=== PATIENT | male | born 1985 | race Caucasian/White ===

== ENCOUNTER 2020-09-21 05:26 | Inpatient (IN) | payer OTHER ==
[2020-09-21] MEDS ORDERED: NALOXONE 0.4 MG/ML 1 ML VIAL IVP STA (05:31)
[2020-09-21] MEDS ORDERED: ETOMIDATE 2 MG/ML 10 ML VIAL IVP STA (05:38)
[2020-09-21 05:43] LABS: Glucose,Whole Blood 147 mg/dL (75-99)
[2020-09-21] MEDS ORDERED: SODIUM CHLORIDE 0.9% 1,000 ML IV ONE ×3 (05:46→13:11)
[2020-09-21] MEDS ORDERED: SODIUM CHLORIDE 0.9% 1,000 ML IV STA ×4 (05:46→08:30)
[2020-09-21] MEDS ORDERED: LORazepam 2 MG/ML INJ IV STA ×2 (05:48→09:34)
[2020-09-21] MEDS ORDERED: MORPHINE SULFATE 4 MG/ML SYRINGE IV STA (05:48)
[2020-09-21] MEDS ORDERED: SUCCINYLCHOLINE CHLORIDE VIAL 200 MG/10 ML VIAL IV STA (06:01)
--- NOTE | 2020-09-21 06:13 | XR ---
EXAMINATION TYPE: XR chest 1V portable DATE OF EXAM: 09/21/2020 COMPARISON: NONE HISTORY: Unresponsive. Had to be intubated. TECHNIQUE: Single AP portable frontal supine view of the chest is obtained. FINDINGS: There is oral gastric tube passing below the diaphragm. There is endotracheal tube at leve l of aortic knob approximately 1 to 2 cm above cornelia, advise pulling back 2 to 3 cm to be in more id eal position. Low lung volumes with mild central vascular congestion and right basilar opacity. No pleural effusion or pneumothorax. Cardiac silhouette size within normal limits. Visualized osseous structures are int act. IMPRESSION: 1. Satisfactory positioning orogastric tube. Slightly low-lying endotracheal tube. 2. Low lung volumes with mild central vascular congestion and right basilar infiltrate and/or atelect asis.
--- NOTE | 2020-09-21 06:19 | ED ---
Altered Mental Status HPI - General Chief Complaint: Altered Mental Status Stated Complaint: Unresponsive Time Seen by Provider: 09/21/20 05:46 Source: EMS Mode of arrival: EMS Limitations: altered mental status - History of Present Illness Initial Comments: This patient was brought by EMS from a motel room where he was staying with his partner. They had reportedly been using a hot tub last night and the patient probably was using methamphetamine and possibly opioids. The partner had gone to sleep and woke to find the patient unresponsive in the hot tub. He had probably been in the tub for six hours. No other history available. MD Complaint: altered mental status, decreased responsiveness -: hour(s) Severity: severe Treatments Prior to Arrival: IV fluid, oxygen - Related Data Home Medications Medication Instructions Recorded Confirmed Buprenorphine HCl/Naloxone HCl 1 film SL BID 09/21/20 09/21/20 [Suboxone 8 mg-2 mg Sl Film] Kratom 1 cap PO DIRECTED 09/21/20 09/21/20 Allergies Allergy/AdvReac Type Severity Reaction Status Date / Time No Known Allergies Allergy Unverified 09/21/20 09:19 Review of Systems ROS Statement: Those systems with pertinent positive or pertinent negative responses have been documented in the HPI. ROS Other: All systems not noted in ROS Statement are negative. Limitations: ROS unobtainable due to patients medical condition Past Medical History Past Medical History: No Reported History History of Any Multi-Drug Resistant Organisms: None Reported Past Surgical History: No Surgical Hx Reported Smoking Status: Unknown if ever smoked Past Alcohol Use History: None Reported Past Drug Use History: None Reported - Past Family History Father Family Medical History: GERD/Reflux General Exam General appearance: obtunded Head exam: Present: atraumatic, normocephalic Eye exam: Present: scleral icterus. Absent: conjunctival injection, nystagmus Pupils: Present: mydriatic ENT exam: Present: mucous membranes dry Neck exam: Present: normal inspection. Absent: tenderness Respiratory exam: Present: respiratory distress (tachypnea, rate 36.), rhonchi. Absent: wheezes, rales, stridor Cardiovascular Exam: Present: normal rhythm, tachycardia, systolic murmur. Absent: diastolic murmur, rubs, gallop GI/Abdominal exam: Present: soft. Absent: distended, tenderness, guarding, r ebound, rigid, mass, pulsatile mass, hernia exam: Present: normal inspection Extremities exam: Present: normal inspection (There is present during of the fingers and). Absent: normal capillary refill, pedal edema, calf tenderness Back exam: Present: normal inspection, other (No evidence of trauma. No step- off or deformity). Absent: vertebral tenderness Neurological exam: Present: altered, CN II-XII intact, reflexes normal. Absent: motor sensory deficit Skin exam: Present: warm, dry, intact, erythema, other (Pruning of the digits consistent with immersion). Absent: rash Course Vital Signs 09/21/20 09/21/20 09/21/20 05:27 05:29 05:31 Temperature 98.5 F 105 F H Pulse Rate 163 H 178 H Respiratory 60 H 60 H 28 H Rate Blood Pressure 200/163 200/163 O2 Sat by Pulse 91 L 91 L Oximetry 09/21/20 09/21/20 09/21/20 05:40 06:00 06:10 Temperature Pulse Rate 162 H 165 H 168 H Respiratory 20 26 H 30 H Rate Blood Pressure 64/28 66/26 O2 Sat by Pulse 91 L 98 98 Oximetry 09/21/20 09/21/20 09/21/20 06:15 06:20 06:25 Temperature 105.6 F H 105.4 F H 103.1 F H Pulse Rate 165 H 165 H 168 H Respiratory 25 H 16 20 Rate Blood Pressure 55/27 98/33 93/21 O2 Sat by Pulse 100 100 100 Oximetry 09/21/20 09/21/20 09/21/20 06:30 06:45 07:06 Temperature 102.6 F H 104.2 F H 106.9 F H Pulse Rate 168 H 168 H 165 H Respiratory 28 H 16 18 Rate Blood Pressure 65/28 101/32 50/20 O2 Sat by Pulse 100 99 100 Oximetry 09/21/20 09/21/20 09/21/20 07:14 07:38 08:07 Temperature 106.9 F H 106.3 F H 106.2 F H Pulse Rate 149 H 151 H Respiratory 36 H 40 H Rate Blood Pressure 85/21 81/24 O2 Sat by Pulse 10 L Oximetry 09/21/20 09/21/20 09/21/20 08:33 09:02 09:30 Temperature 105.6 F H 104.7 F H 103.1 F H Pulse Rate 144 H 134 H 129 H Respiratory 38 H 35 H 45 H Rate Blood Pressure 74/33 68/34 104/34 O2 Sat by Pulse 99 100 99 Oximetry 09/21/20 09/21/20 10:01 10:06 Temperature 102.6 F H Pulse Rate 125 H Respiratory 45 H Rate Blood Pressure 78/26 71/24 O2 Sat by Pulse 99 Oximetry Procedures - Central Line Placement Right Femoral Consent Obtained: emergent situation Patient Placed on Monitor/Pulse Ox: Yes MD Prep: mask, gown, gloves Central Line Prep: Chlorhexidine scrub Local Anesthesia Used: Lidocaine 1% Central Line Lumen Inserted: triple Bloods Obtained for Lab: Yes Central Line Position: good blood return, all ports aspirated, flushed, capped, sutured in place with nylon Dressing Applied: Tegaderm Patient Tolerated Procedure: well Complications: none Medical Decision Making - Medical Decision Making Patient is 34-year-old man brought in unresponsive after being found in hot tub, unconscious, by his partner who was there. Patient is intubated for airway protection, but suspect aspiration at the scene. Active cooling is initiated. Patient received a dose of antibiotics in emergency department Central line placement for administration of multiple medications, including IV fluids, antibiotics, pressor agents. Patient be admitted to ICU and consultants are added. Patient's with minimal neurologic activity, mainly just breathing over the ve ntilator, prognosis extremely guarded. - Lab Data Result diagrams: 09/21/20 13:40 09/21/20 12:32 Lab Results 09/21/20 09/21/20 09/21/20 Range/Units 05:39 05:46 06:35 WBC 16.0 H (3.8-10.6) k/uL RBC 5.02 (4.30-5.90) m/uL Hgb 15.8 (13.0-17.5) gm/dL Hct 48.1 (39.0-53.0) % MCV 95.9 (80.0-100.0) fL MCH 31.6 (25.0-35.0) pg MCHC 32.9 (31.0-37.0) g/dL RDW 13.3 (11.5-15.5) % Plt Count 287 (150-450) k/uL MPV 7.2 Neutrophils % Not Reportable Neutrophils % (Manual) 72 % Band Neuts % (Manual) 4 % Lymphocytes % Not Reportable Lymphocytes % (Manual) 11 % Monocytes % Not Reportable Monocytes % (Manual) 12 % Eosinophils % Not Reportable Basophils % Not Reportable Myelocytes % 2 % Neutrophils # Not Reportable Neutrophils # (Manual) 12.10 H (1.3-7.7) k/uL Lymphocytes # Not Reportable Lymphocytes # (Manual) 1.76 (1.0-4.8) k/uL Monocytes # Not Reportable Monocytes # (Manual) 1.92 H (0-1.0) k/uL Eosinophils # Not Reportable Basophils # Not Reportable Myelocytes # (Manual) 0.32 H (0) k/uL Nucleated RBCs 2 H (0-0) /100 WBC Manual Slide Review Performed Hypersegmented Neuts Present PT (9.0-12.0) sec INR (<1.2) APTT (22.0-30.0) sec Sample Site ABG pH (7.35-7.45) ABG pCO2 (35-45) mmHg ABG pO2 (83-108) mmHg ABG HCO3 (21-25) mmol/L ABG Total CO2 (19-24) mmol/L ABG O2 Saturation (94-97) % ABG Base Excess mmol/L Nelson Test VBG pH (7.31-7.41) VBG pCO2 (37-51) mmHg VBG HCO3 (24-28) mmol/L FiO2 % Sodium 143 (137-145) mmol/L Potassium 5.3 H (3.5-5.1) mmol/L Chloride 108 H (98-107) mmol/L Carbon Dioxide 20 L (22-30) mmol/L Anion Gap 15 mmol/L BUN 28 H (9-20) mg/dL Creatinine 3.81 H (0.66-1.25) mg/dL Est GFR (CKD-EPI)AfAm 22 (>60 ml/min/1.73 sqM) Est GFR (CKD-EPI)NonAf 19 (>60 ml/min/1.73 sqM) Glucose 101 H (74-99) mg/dL POC Glucose (mg/dL) 147 H (75-99) mg/dL POC Glu Proof Tester ID Khushboo Mederos Plasma Lactic Acid Stewart (0.7-2.0) mmol/L Calcium 9.4 (8.4-10.2) mg/dL Magnesium (1.6-2.3) mg/dL Total Bilirubin 0.9 (0.2-1.3) mg/dL AST 218 H (17-59) U/L ALT 156 H (4-49) U/L Alkaline Phosphatase 87 (38-126) U/L Ammonia (<30) umol/L Troponin I (0.000-0.034) ng/mL Total Protein 7.2 (6.3-8.2) g/dL Albumin 4.1 (3.5-5.0) g/dL Urine Color Urine Appearance (Clear) Urine pH (5.0-8.0) Ur Specific Hammond (1.001-1.035) Urine Protein (Negative) Urine Glucose (UA) (Negative) Urine Ketones (Negative) Urine Blood (Negative) Urine Nitrite (Negative) Urine Bilirubin (Negative) Urine Urobilinogen (<2.0) mg/dL Ur Leukocyte Esterase (Negative) Urine WBC (0-5) /hpf Ur Squamous Epith Cells (0-4) /hpf Urine Mucus (None) /hpf Urine Opiates Screen (NotDetected) Ur Oxycodone Screen (NotDetected) Urine Methadone Screen (NotDetected) Ur Propoxyphene Screen (NotDetected) Ur Barbiturates Screen (NotDetected) U Tricyclic Antidepress (NotDetected) Ur Phencyclidine Scrn (NotDetected) Ur Amphetamines Screen (NotDetected) U Methamphetamines Scrn (NotDetected) U Benzodiazepines Scrn (NotDetected) Urine Cocaine Screen (NotDetected) U Marijuana (THC) Screen (NotDetected) Serum Alcohol mg/dL 09/21/20 09/21/20 09/21/20 Range/Units 06:35 06:35 06:40 WBC (3.8-10.6) k/uL RBC (4.30-5.90) m/uL Hgb (13.0-17.5) gm/dL Hct (39.0-53.0) % MCV (80.0-100.0) fL MCH (25.0-35.0) pg MCHC (31.0-37.0) g/dL RDW (11.5-15.5) % Plt Count (150-450) k/uL MPV Neutrophils % Neutrophils % (Manual) % Band Neuts % (Manual) % Lymphocytes % Lymphocytes % (Manual) % Monocytes % Monocytes % (Manual) % Eosinophils % Basophils % Myelocytes % % Neutrophils # Neutrophils # (Manual) (1.3-7.7) k/uL Lymphocytes # Lymphocytes # (Manual) (1.0-4.8) k/uL Monocytes # Monocytes # (Manual) (0-1.0) k/uL Eosinophils # Basophils # Myelocytes # (Manual) (0) k/uL Nucleated RBCs (0-0) /100 WBC Manual Slide Review Hypersegmented Neuts PT 12.1 H (9.0-12.0) sec INR 1.2 H (<1.2) APTT 19.7 L (22.0-30.0) sec Sample Site ABG pH (7.35-7.45) ABG pCO2 (35-45) mmHg ABG pO2 (83-108) mmHg ABG HCO3 (21-25) mmol/L ABG Total CO2 (19-24) mmol/L ABG O2 Saturation (94-97) % ABG Base Excess mmol/L Nelson Test VBG pH (7.31-7.41) VBG pCO2 (37-51) mmHg VBG HCO3 (24-28) mmol/L FiO2 % Sodium (137-145) mmol/L Potassium (3.5-5.1) mmol/L Chloride (98-107) mmol/L Carbon Dioxide (22-30) mmol/L Anion Gap mmol/L BUN (9-20) mg/dL Creatinine (0.66-1.25) mg/dL Est GFR (CKD-EPI)AfAm (>60 ml/min/1.73 sqM) Est GFR (CKD-EPI)NonAf (>60 ml/min/1.73 sqM) Glucose (74-99) mg/dL POC Glucose (mg/dL) (75-99) mg/dL POC Glu Proof Tester ID Plasma Lactic Acid Stewart (0.7-2.0) mmol/L Calcium (8.4-10.2) mg/dL Magnesium (1.6-2.3) mg/dL Total Bilirubin (0.2-1.3) mg/dL AST (17-59) U/L ALT (4-49) U/L Alkaline Phosphatase (38-126) U/L Ammonia (<30) umol/L Troponin I 1.460 H* (0.000-0.034) ng/mL Total Protein (6.3-8.2) g/dL Albumin (3.5-5.0) g/dL Urine Color Yellow Urine Appearance Cloudy (Clear) Urine pH 5.5 (5.0-8.0) Ur Specific Hammond 1.025 (1.001-1.035) Urine Protein 1+ H (Negative) Urine Glucose (UA) Negative (Negative) Urine Ketones Trace H (Negative) Urine Blood Negative (Negative) Urine Nitrite Negative (Negative) Urine Bilirubin Negative (Negative) Urine Urobilinogen <2.0 (<2.0) mg/dL Ur Leukocyte Esterase Negative (Negative) Urine WBC 3 (0-5) /hpf Ur Squamous Epith Cells <1 (0-4) /hpf Urine Mucus Many H (None) /hpf Urine Opiates Screen Detected H (NotDetected) Ur Oxycodone Screen Not Detected (NotDetected) Urine Methadone Screen Not Detected (NotDetected) Ur Propoxyphene Screen Not Detected (NotDetected) Ur Barbiturates Screen Not Detected (NotDetected) U Tricyclic Antidepress Not Detected (NotDetected) Ur Phencyclidine Scrn Not Detected (NotDetected) Ur Amphetamines Screen Not Detected (NotDetected) U Methamphetamines Scrn Not Detected (NotDetected) U Benzodiazepines Scrn Detected H (NotDetected) Urine Cocaine Screen Not Detected (NotDetected) U Marijuana (THC) Screen Detected H (NotDetected) Serum Alcohol mg/dL 09/21/20 09/21/20 09/21/20 Range/Units 06:56 06:56 07:07 WBC (3.8-10.6) k/uL RBC (4.30-5.90) m/uL Hgb (13.0-17.5) gm/dL Hct (39.0-53.0) % MCV (80.0-100.0) fL MCH (25.0-35.0) pg MCHC (31.0-37.0) g/dL RDW (11.5-15.5) % Plt Count (150-450) k/uL MPV Neutrophils % Neutrophils % (Manual) % Band Neuts % (Manual) % Lymphocytes % Lymphocytes % (Manual) % Monocytes % Monocytes % (Manual) % Eosinophils % Basophils % Myelocytes % % Neutrophils # Neutrophils # (Manual) (1.3-7.7) k/uL Lymphocytes # Lymphocytes # (Manual) (1.0-4.8) k/uL Monocytes # Monocytes # (Manual) (0-1.0) k/uL Eosinophils # Basophils # Myelocytes # (Manual) (0) k/uL Nucleated RBCs (0-0) /100 WBC Manual Slide Review Hypersegmented Neuts PT (9.0-12.0) sec INR (<1.2) APTT (22.0-30.0) sec Sample Site rfem ABG pH 7.32 L (7.35-7.45) ABG pCO2 35 (35-45) mmHg ABG pO2 235 H (83-108) mmHg ABG HCO3 18 L (21-25) mmol/L ABG Total CO2 19 (19-24) mmol/L ABG O2 Saturation 100.0 H (94-97) % ABG Base Excess -8.1 mmol/L Nelson Test no VBG pH 7.28 L (7.31-7.41) VBG pCO2 42 (37-51) mmHg VBG HCO3 19 L (24-28) mmol/L FiO2 100 % Sodium (137-145) mmol/L Potassium (3.5-5.1) mmol/L Chloride (98-107) mmol/L Carbon Dioxide (22-30) mmol/L Anion Gap mmol/L BUN (9-20) mg/dL Creatinine (0.66-1.25) mg/dL Est GFR (CKD-EPI)AfAm (>60 ml/min/1.73 sqM) Est GFR (CKD-EPI)NonAf (>60 ml/min/1.73 sqM) Glucose (74-99) mg/dL POC Glucose (mg/dL) (75-99) mg/dL POC Glu Proof Tester ID Plasma Lactic Acid Stewart (0.7-2.0) mmol/L Calcium (8.4-10.2) mg/dL Magnesium (1.6-2.3) mg/dL Total Bilirubin (0.2-1.3) mg/dL AST (17-59) U/L ALT (4-49) U/L Alkaline Phosphatase (38-126) U/L Ammonia 44 H (<30) umol/L Troponin I (0.000-0.034) ng/mL Total Protein (6.3-8.2) g/dL Albumin (3.5-5.0) g/dL Urine Color Urine Appearance (Clear) Urine pH (5.0-8.0) Ur Specific Hammond (1.001-1.035) Urine Protein (Negative) Urine Glucose (UA) (Negative) Urine Ketones (Negative) Urine Blood (Negative) Urine Nitrite (Negative) Urine Bilirubin (Negative) Urine Urobilinogen (<2.0) mg/dL Ur Leukocyte Esterase (Negative) Urine WBC (0-5) /hpf Ur Squamous Epith Cells (0-4) /hpf Urine Mucus (None) /hpf Urine Opiates Screen (NotDetected) Ur Oxycodone Screen (NotDetected) Urine Methadone Screen (NotDetected) Ur Propoxyphene Screen (NotDetected) Ur Barbiturates Screen (NotDetected) U Tricyclic Antidepress (NotDetected) Ur Phencyclidine Scrn (NotDetected) Ur Amphetamines Screen (NotDetected) U Methamphetamines Scrn (NotDetected) U Benzodiazepines Scrn (NotDetected) Urine Cocaine Screen (NotDetected) U Marijuana (THC) Screen (NotDetected) Serum Alcohol mg/dL 09/21/20 09/21/20 09/21/20 Range/Units 08:14 08:14 08:15 WBC (3.8-10.6) k/uL RBC (4.30-5.90) m/uL Hgb (13.0-17.5) gm/dL Hct (39.0-53.0) % MCV (80.0-100.0) fL MCH (25.0-35.0) pg MCHC (31.0-37.0) g/dL RDW (11.5-15.5) % Plt Count (150-450) k/uL MPV Neutrophils % Neutrophils % (Manual) % Band Neuts % (Manual) % Lymphocytes % Lymphocytes % (Manual) % Monocytes % Monocytes % (Manual) % Eosinophils % Basophils % Myelocytes % % Neutrophils # Neutrophils # (Manual) (1.3-7.7) k/uL Lymphocytes # Lymphocytes # (Manual) (1.0-4.8) k/uL Monocytes # Monocytes # (Manual) (0-1.0) k/uL Eosinophils # Basophils # Myelocytes # (Manual) (0) k/uL Nucleated RBCs (0-0) /100 WBC Manual Slide Review Hypersegmented Neuts PT (9.0-12.0) sec INR (<1.2) APTT (22.0-30.0) sec Sample Site ABG pH (7.35-7.45) ABG pCO2 (35-45) mmHg ABG pO2 (83-108) mmHg ABG HCO3 (21-25) mmol/L ABG Total CO2 (19-24) mmol/L ABG O2 Saturation (94-97) % ABG Base Excess mmol/L Nelson Test VBG pH (7.31-7.41) VBG pCO2 (37-51) mmHg VBG HCO3 (24-28) mmol/L FiO2 % Sodium 146 H (137-145) mmol/L Potassium 4.5 (3.5-5.1) mmol/L Chloride 115 H (98-107) mmol/L Carbon Dioxide 17 L (22-30) mmol/L Anion Gap 14 mmol/L BUN 32 H (9-20) mg/dL Creatinine 4.51 H (0.66-1.25) mg/dL Est GFR (CKD-EPI)AfAm 18 (>60 ml/min/1.73 sqM) Est GFR (CKD-EPI)NonAf 16 (>60 ml/min/1.73 sqM) Glucose 53 L (74-99) mg/dL POC Glucose (mg/dL) (75-99) mg/dL POC Glu Proof Tester ID Plasma Lactic Acid Stewart 3.0 H* (0.7-2.0) mmol/L Calcium 8.8 (8.4-10.2) mg/dL Magnesium 1.4 L (1.6-2.3) mg/dL Total Bilirubin (0.2-1.3) mg/dL AST (17-59) U/L ALT (4-49) U/L Alkaline Phosphatase (38-126) U/L Ammonia (<30) umol/L Troponin I (0.000-0.034) ng/mL Total Protein (6.3-8.2) g/dL Albumin (3.5-5.0) g/dL Urine Color Urine Appearance (Clear) Urine pH (5.0-8.0) Ur Specific Hammond (1.001-1.035) Urine Protein (Negative) Urine Glucose (UA) (Negative) Urine Ketones (Negative) Urine Blood (Negative) Urine Nitrite (Negative) Urine Bilirubin (Negative) Urine Urobilinogen (<2.0) mg/dL Ur Leukocyte Esterase (Negative) Urine WBC (0-5) /hpf Ur Squamous Epith Cells (0-4) /hpf Urine Mucus (None) /hpf Urine Opiates Screen (NotDetected) Ur Oxycodone Screen (NotDetected) Urine Methadone Screen (NotDetected) Ur Propoxyphene Screen (NotDetected) Ur Barbiturates Screen (NotDetected) U Tricyclic Antidepress (NotDetected) Ur Phencyclidine Scrn (NotDetected) Ur Amphetamines Screen (NotDetected) U Methamphetamines Scrn (NotDetected) U Benzodiazepines Scrn (NotDetected) Urine Cocaine Screen (NotDetected) U Marijuana (THC) Screen (NotDetected) Serum Alcohol <10 mg/dL - EKG Data -: EKG Interpreted by Me EKG shows normal: sinus rhythm, axis (right axis deviation), intervals (Normal) Rate: tachycardia (rate 165) Interpretation: nonspecific ST-T wave changes, other (Possible RVH) Critical Care Time Critical Care Time: Yes (60 minutes) Disposition Clinical Impression: Drug overdose, Altered mental status, Hyperthermia associated with heat Disposition: ADMITTED IP TO THIS HOSP Condition: Critical
[2020-09-21 06:46] LABS: HCT 48.1 % (39.0-53.0); HGB 15.8 gm/dL (13.0-17.5); MCH 31.6 pg (25.0-35.0); MCHC 32.9 g/dL (31.0-37.0); MCV 95.9 fL (80.0-100.0); Mean Platelet Volume 7.2; Platelet Count 287 k/uL (150-450); RBC 5.02 m/uL (4.30-5.90); RDW 13.3 % (11.5-15.5)
[2020-09-21 06:58] LABS: Appearance,Urine Cloudy (Clear); Bilirubin,Urine Negative (Negative); Blood,Urine Negative (Negative); Color,Urine Yellow; Glucose,Urine (UA) Negative (Negative); Ketones,Urine Trace (Negative); Leukocyte Esterase,Urine Negative (Negative); Mucus,Urine Many /hpf; Nitrite,Urine Negative (Negative); PH, Urine 5.5 (5.0-8.0); Protein,Urine 1+ (Negative); Specific Gravity,Urine 1.025 (1.001-1.035); Squamous Epithelial Cell,Urine <1 /hpf (0-4); Urobilinogen,Urine <2.0 mg/dL (<2.0); WBC,Urine 3 /hpf (0-5)
[2020-09-21 07:05] LABS: INR 1.2 (<1.2); Prothrombin Time 12.1 sec (9.0-12.0)
[2020-09-21 07:07] LABS: Partial Thromboplastin Time 19.7 sec (22.0-30.0)
[2020-09-21 07:10] LABS: ABG Base Excess -8.1 mmol/L; ABG HCO3 18 mmol/L (21-25); ABG PCO2 35 mmHg (35-45); ABG PH 7.32 (7.35-7.45); ABG PO2 235 mmHg (83-108); ABG TCO2 19 mmol/L (19-24)
[2020-09-21 07:11] LABS: Band Neutrophils % 4 %; Myelocytes % 2 %; Neutrophils % (M) 72 %; Nucleated Red Blood Cells 2 /100 WBC (0-0); Total Cells Counted 200
[2020-09-21 07:11] LABS: VBG PH 7.28 (7.31-7.41)
[2020-09-21 07:12] LABS: Lymphocytes # (M) 1.76 k/uL (1.0-4.8); Monocytes # (M) 1.92 k/uL (0-1.0); Myelocytes # (M) 0.32 k/uL (0)
[2020-09-21 07:14] LABS: Hypersegmented Neutrophils Present
[2020-09-21 07:14] LABS: Allen Test Performed? no
[2020-09-21 07:16] LABS: Cocaine Screen,Urine Not Detected (NotDetected); Phencyclidine Screen,Urine Not Detected (NotDetected); Urn Cannabinoid Scrn Detected (NotDetected)
[2020-09-21 07:17] LABS: Amphetamine Screen,Urine Not Detected (NotDetected); Barbiturate Screen,Urine Not Detected (NotDetected); Benzodiazepines Screen,Urine Detected (NotDetected); Methadone Screen, Urine Not Detected (NotDetected); Opiate Screen,Urine Detected (NotDetected); Oxycodone Screen, Urine Not Detected (NotDetected); Tricyclic Antidepressant,Urine Not Detected (NotDetected)
[2020-09-21 07:20] LABS: Albumin 4.1 g/dL (3.5-5.0); Calcium 9.4 mg/dL (8.4-10.2); Potassium 5.3 mmol/L (3.5-5.1); Total Bilirubin 0.9 mg/dL (0.2-1.3); Total Protein 7.2 g/dL (6.3-8.2)
--- NOTE | 2020-09-21 07:46 | CT ---
EXAMINATION TYPE: CT brain wo con DATE OF EXAM: 09/21/2020 COMPARISON: None. HISTORY: Altered mental status CT DLP: 1202.4 mGycm. Automated Exposure Control for Dose Reduction was Utilized. TECHNIQUE: CT scan of the head is performed without contrast. FINDINGS: Some artifact distortion noted. There is no acute intracranial hemorrhage, mass effect, or midline shift identified. The ventricles and sulci are within normal limits in size. Bolivar-white ma tter junction is maintained. The calvarium is intact. Fluid fills the nasopharyngeal airway. Air-flui d level right maxillary sinus and and bilateral sphenoid sinuses. Patchy fluid bilateral ethmoid air cells. Globes are intact bilaterally. IMPRESSION: No acute intracranial hemorrhage or midline shift is seen. Paranasal sinus disease may b e product of intubation.
[2020-09-21] MEDS ORDERED: ACETAMINOPHEN TAB 325 MG TAB PO PRN (08:51)
[2020-09-21] MEDS ORDERED: ARTIFICIAL TEARS OINTMENT 3.5 GM TUBE BOTH EYES PRN (08:51)
[2020-09-21] MEDS ORDERED: NALOXONE 0.4 MG/ML 1 ML VIAL IV PRN (08:51)
[2020-09-21] MEDS ORDERED: NOREPINEPHRINE 4 MG in SODIUM CHLORIDE 0.9% 250 ML IV ONE (09:00)
[2020-09-21] MEDS ORDERED: FAMOTIDINE 20 MG/2 ML VIAL IV SCH (09:00)
[2020-09-21] MEDS ORDERED: PANTOPRAZOLE 40 MG/10 ML VIAL IVP SCH (09:15)
[2020-09-21] MEDS: PIPERACILLIN-TAZOBACTAM 3.375 GM in SODIUM CHLORIDE 0.9% 100 ML IVPB SCH ×2 (09:19→16:20)
[2020-09-21] MEDS ORDERED: ACETAMINOPHEN SUPPOSITORY 650 MG SUPP RECTAL PRN (09:22)
--- NOTE | 2020-09-21 09:26 | P.HPIM ---
History of Present Illness H&P Date: 09/21/20 Chief Complaint: Unresponsive This is a 34-year-old male with past medical history significant for polysubstance abuse who was brought into the emergency room after he was found by his girlfriend unresponsive in a bathtub at the hotel room. Patient was seen and evaluated by me in the emergency room. He is currently intubated. History obtained by nursing staff and chart review. Apparently, patient was doing drugs last night with his girlfriend sitting in the bathtub at the hotel room and subsequently his girlfriend went to sleep and woke up this morning to find him still in the bathtub ''and making weird noises''. Patient was brought to the emergency room by EMS. He was found to have persistent high-grade fever of 106. He was also hypotensive and completely unresponsive. He was intubated. He was given 1 dose of succinylcholine and Narcan. He is currently on not on any sedation. He received aggressive IV fluid resuscitation and currently on his fifth liter of normal saline. He has a cooling blanket. Chest x-ray showed no acute findings. Review of Systems Unable to review other systems secondary to current mental status Past Medical History Past Medical History: No Reported History History of Any Multi-Drug Resistant Organisms: None Reported Past Surgical History: No Surgical Hx Reported Smoking Status: Unknown if ever smoked Past Alcohol Use History: None Reported Past Drug Use History: None Reported Medications and Allergies Home Medications Medication Instructions Recorded Confirmed Type Buprenorphine HCl/Naloxone HCl 1 film SL BID 09/21/20 09/21/20 History [Suboxone 8 mg-2 mg Sl Film] Kratom 1 cap PO DIRECTED 09/21/20 09/21/20 History Allergies Allergy/AdvReac Type Severity Reaction Status Date / Time No Known Allergies Allergy Unverified 09/21/20 09:19 Physical Exam Vitals: Vital Signs Temp Pulse Resp BP Pulse Ox 09/21/20 09:02 104.7 F H 134 H 35 H 68/34 100 09/21/20 08:33 105.6 F H 144 H 38 H 74/33 99 09/21/20 08:07 106.2 F H 151 H 40 H 81/24 09/21/20 07:38 106.3 F H 149 H 36 H 85/21 10 L 09/21/20 07:14 106.9 F H 09/21/20 07:06 106.9 F H 165 H 18 50/20 100 09/21/20 06:45 104.2 F H 168 H 16 101/32 99 09/21/20 06:30 102.6 F H 168 H 28 H 65/28 100 09/21/20 06:25 103.1 F H 168 H 20 93/21 100 09/21/20 06:20 105.4 F H 165 H 16 98/33 100 09/21/20 06:15 105.6 F H 165 H 25 H 55/27 100 09/21/20 06:10 168 H 30 H 66/26 98 09/21/20 06:00 165 H 26 H 64/28 98 09/21/20 05:40 162 H 20 91 L 09/21/20 05:31 28 H 09/21/20 05:29 105 F H 178 H 60 H 200/163 91 L 09/21/20 05:27 98.5 F 163 H 60 H 200/163 91 L Intake and Output 09/20/20 09/21/20 09/21/20 22:59 06:59 14:59 Other: Weight 95.254 kg General: The patient is obtunded, intubated and not responsive to painful stimuli Eye: there is normal conjunctiva bilaterally. Neck: The neck is supple, there is no JVD. Cardiovascular: Normal S1-S2, no S3-S4, no murmurs. Respiratory: Lungs with mechanical ventilator sounds Gastrointestinal: Abdomen is soft, nondistended Musculoskeletal: There is no pedal edema. Skin: Skin is warm and dry Results CBC & Chem 7: 09/21/20 06:35 09/21/20 05:46 Labs: Abnormal Lab Results - Last 24 Hours (Table) 09/21/20 09/21/20 09/21/20 Range/Units 05:39 05:46 06:35 WBC 16.0 H (3.8-10.6) k/uL Neutrophils # (Manual) 12.10 H (1.3-7.7) k/uL Monocytes # (Manual) 1.92 H (0-1.0) k/uL Myelocytes # (Manual) 0.32 H (0) k/uL Nucleated RBCs 2 H (0-0) /100 WBC PT (9.0-12.0) sec INR (<1.2) APTT (22.0-30.0) sec ABG pH (7.35-7.45) ABG pO2 (83-108) mmHg ABG HCO3 (21-25) mmol/L ABG O2 Saturation (94-97) % VBG pH (7.31-7.41) VBG HCO3 (24-28) mmol/L Potassium 5.3 H (3.5-5.1) mmol/L Chloride 108 H (98-107) mmol/L Carbon Dioxide 20 L (22-30) mmol/L BUN 28 H (9-20) mg/dL Creatinine 3.81 H (0.66-1.25) mg/dL Glucose 101 H (74-99) mg/dL POC Glucose (mg/dL) 147 H (75-99) mg/dL Plasma Lactic Acid Stewart (0.7-2.0) mmol/L AST 218 H (17-59) U/L ALT 156 H (4-49) U/L Ammonia (<30) umol/L Troponin I (0.000-0.034) ng/mL Urine Protein (Negative) Urine Ketones (Negative) Urine Mucus (None) /hpf Urine Opiates Screen (NotDetected) U Benzodiazepines Scrn (NotDetected) U Marijuana (THC) Screen (NotDetected) 09/21/20 09/21/20 09/21/20 Range/Units 06:35 06:35 06:40 WBC (3.8-10.6) k/uL Neutrophils # (Manual) (1.3-7.7) k/uL Monocytes # (Manual) (0-1.0) k/uL Myelocytes # (Manual) (0) k/uL Nucleated RBCs (0-0) /100 WBC PT 12.1 H (9.0-12.0) sec INR 1.2 H (<1.2) APTT 19.7 L (22.0-30.0) sec ABG pH (7.35-7.45) ABG pO2 (83-108) mmHg ABG HCO3 (21-25) mmol/L ABG O2 Saturation (94-97) % VBG pH (7.31-7.41) VBG HCO3 (24-28) mmol/L Potassium (3.5-5.1) mmol/L Chloride (98-107) mmol/L Carbon Dioxide (22-30) mmol/L BUN (9-20) mg/dL Creatinine (0.66-1.25) mg/dL Glucose (74-99) mg/dL POC Glucose (mg/dL) (75-99) mg/dL Plasma Lactic Acid Stewart (0.7-2.0) mmol/L AST (17-59) U/L ALT (4-49) U/L Ammonia (<30) umol/L Troponin I 1.460 H* (0.000-0.034) ng/mL Urine Protein 1+ H (Negative) Urine Ketones Trace H (Negative) Urine Mucus Many H (None) /hpf Urine Opiates Screen Detected H (NotDetected) U Benzodiazepines Scrn Detected H (NotDetected) U Marijuana (THC) Screen Detected H (NotDetected) 09/21/20 09/21/20 09/21/20 Range/Units 06:56 06:56 07:07 WBC (3.8-10.6) k/uL Neutrophils # (Manual) (1.3-7.7) k/uL Monocytes # (Manual) (0-1.0) k/uL Myelocytes # (Manual) (0) k/uL Nucleated RBCs (0-0) /100 WBC PT (9.0-12.0) sec INR (<1.2) APTT (22.0-30.0) sec ABG pH 7.32 L (7.35-7.45) ABG pO2 235 H (83-108) mmHg ABG HCO3 18 L (21-25) mmol/L ABG O2 Saturation 100.0 H (94-97) % VBG pH 7.28 L (7.31-7.41) VBG HCO3 19 L (24-28) mmol/L Potassium (3.5-5.1) mmol/L Chloride (98-107) mmol/L Carbon Dioxide (22-30) mmol/L BUN (9-20) mg/dL Creatinine (0.66-1.25) mg/dL Glucose (74-99) mg/dL POC Glucose (mg/dL) (75-99) mg/dL Plasma Lactic Acid Stewart (0.7-2.0) mmol/L AST (17-59) U/L ALT (4-49) U/L Ammonia 44 H (<30) umol/L Troponin I (0.000-0.034) ng/mL Urine Protein (Negative) Urine Ketones (Negative) Urine Mucus (None) /hpf Urine Opiates Screen (NotDetected) U Benzodiazepines Scrn (NotDetected) U Marijuana (THC) Screen (NotDetected) 09/21/20 Range/Units 08:15 WBC (3.8-10.6) k/uL Neutrophils # (Manual) (1.3-7.7) k/uL Monocytes # (Manual) (0-1.0) k/uL Myelocytes # (Manual) (0) k/uL Nucleated RBCs (0-0) /100 WBC PT (9.0-12.0) sec INR (<1.2) APTT (22.0-30.0) sec ABG pH (7.35-7.45) ABG pO2 (83-108) mmHg ABG HCO3 (21-25) mmol/L ABG O2 Saturation (94-97) % VBG pH (7.31-7.41) VBG HCO3 (24-28) mmol/L Potassium (3.5-5.1) mmol/L Chloride (98-107) mmol/L Carbon Dioxide (22-30) mmol/L BUN (9-20) mg/dL Creatinine (0.66-1.25) mg/dL Glucose (74-99) mg/dL POC Glucose (mg/dL) (75-99) mg/dL Plasma Lactic Acid Stewart 3.0 H* (0.7-2.0) mmol/L AST (17-59) U/L ALT (4-49) U/L Ammonia (<30) umol/L Troponin I (0.000-0.034) ng/mL Urine Protein (Negative) Urine Ketones (Negative) Urine Mucus (None) /hpf Urine Opiates Screen (NotDetected) U Benzodiazepines Scrn (NotDetected) U Marijuana (THC) Screen (NotDetected) Assessment and Plan Assessment: This is a 34-year-old male who was brought into the emergency room after his girlfriend found him unresponsive in a bathtub in a hotel. Apparently patient was last seen normal 6-8 hours prior to his presentation. He will be admitted to the intensive care unit for further management of his medical problems noted below. 1. Opiate and benzodiazepine overdose 2. Acute hypoxic respiratory failure requiring mechanical intubation. Ventilated to be managed by pharmacy resource tech 3. Acute toxic metabolic encephalopathy 4. Suspected anoxic brain injury: I consulted to neurology for further evaluation 5. Severe sepsis with septic shock: Continue aggressive IV fluid hydration and antibiotic. Blood culture sent and pending. Cooling blanket in place. Rectal Tylenol as needed for high-grade fever. 6. Suspected aspiration pneumonia: Started on IV Zosyn. 7. Acute kidney failure, oliguric: Continue aggressive IV fluid hydration. Repeat lab work 8. Troponin elevation: Most likely non-thrombotic troponin leak secondary to severe sepsis and hypotension. I would obtain echocardiogram to assess cardiac function. Consult cardiology for further evaluation. 9. GI and DVT prophylaxis with IV Protonix and subcu heparin Today, I reviewed his medication list and lab work results. Patient will be admitted to the intensive care unit. Repeat BMP magnesium and lactic acid. I w ill attempt to contact his family later on today.
[2020-09-21] MEDS: SODIUM CHLORIDE 0.9% 1,000 ML IV SCH ×3 (09:39→18:10)
[2020-09-21] MEDS ORDERED: CISATRACURIUM 2 MG/ML 5 ML VIAL IV ONE (09:41)
[2020-09-21] MEDS ORDERED: CISATRACURIUM 200 MG in SODIUM CHLORIDE 0.9% 180 ML IV SCH (09:45)
[2020-09-21] MEDS ORDERED: propofoL 50 ML IV ONE (09:49)
[2020-09-21 10:34] LABS: Glucose,Whole Blood 52 mg/dL (75-99)
[2020-09-21] MEDS ORDERED: DEXTROSE 50% SYRINGE 50 ML IVP ONE (10:34)
[2020-09-21 10:35] LABS: Glucose,Whole Blood 61 mg/dL (75-99)
[2020-09-21 10:52] LABS: Glucose,Whole Blood 138 mg/dL (75-99)
[2020-09-21] MEDS ORDERED: IPRATROPIUM-ALBUTEROL 3 ML NEB INHALATION PRN (11:09)
--- NOTE | 2020-09-21 11:13 | P.CNPUL ---
History of Present Illness Consult date: 09/21/20 Requesting physician: Mark Castro Reason for consult: other Chief complaint: Acute hypoxic respiratory failure, altered mental status, overdose History of present illness: This is a 34-year-old white male patient was brought into the emergency department on 09/21/2020 per EMS from a motel room where he was staying with his partner. Apparently was using methamphetamine and possibly opioids and was in the hot tub and had gone to sleep. His partner found him unresponsive in the hot tub this morning, and it was estimated that he had been in the hot tub for 6 hours. Patient history is significant for polysubstance abuse. In the emergency department patient was found to have high-grade fever of 106, hypotension and unresponsiveness. Patient was intubated in the emergency department. He was given a dose of Narcan. Patient has received a total of 5- 1/2 L and IV fluid boluses, placed on a cooling blanket, cultures have been sent, patient was started on Zosyn for antibiotic coverage. Brain CT showed no acute intracranial hemorrhage. Chest x-ray showed low lung volumes with mild central vascular congestion and right basilar infiltrate and/or atelectasis. Patient in sinus mechanism tachycardic with a rate of 130 to 160 BPM. Admission labs showed leukocytosis with white blood cell count 16, hemoglobin of 15.8, INR is 1.2, sodium is 143, potassium is 5.3, chloride is 108, CO2 is 20, BUN of 28, creatinine is 3.8, plasma lactic acid was 3.0, troponins were 1.46 and subseque ntly increased to 28.4. We saw the patient in the emergency department, still quite tachycardic, tachypneic, his unresponsive, breathing over the ventilator, is currently not on any sedation, did receive a dose of Ativan. Vent settings are assist-control mode with a rate of 16, tidal lines 500, FiO2 is 50% and PEEP of 5. His blood gases showed pO2 of 235, pCO2 is 35, and pH of 7.32 this was done on FiO2 of 100% and FiO2 had since been dropped down to 50%. Patient is currently on Levophed at 0.05 mics per kilo per minute, and 0.9 is infusing and oriented to 50 ML per hour. Patient is quite asynchronous with the ventilator, he will need to be started on the sedative infusion possibly to prevent, and given paralytics Review of Systems ROS unobtainable: due to endotracheal tube, due to mental status All systems: negative Constitutional: Denies chills, Denies fever Eyes: denies blurred vision, denies pain Ears, nose, mouth and throat: Denies headache, Denies sore throat Cardiovascular: Denies chest pain, Denies shortness of breath Respiratory: Denies cough Gastrointestinal: Denies abdominal pain, Denies diarrhea, Denies nausea, Denies vomiting Musculoskeletal: Denies myalgias Integumentary: Denies pruritus, Denies rash Neurological: Denies numbness, Denies weakness Psychiatric: Denies anxiety, Denies depression Endocrine: Denies fatigue, Denies weight change Past Medical History Past Medical History: No Reported History History of Any Multi-Drug Resistant Organisms: None Reported Past Surgical History: No Surgical Hx Reported Smoking Status: Unknown if ever smoked Past Alcohol Use History: None Reported Past Drug Use History: None Reported Medications and Allergies Home Medications Medication Instructions Recorded Confirmed Type Buprenorphine HCl/Naloxone HCl 1 film SL BID 09/21/20 09/21/20 History [Suboxone 8 mg-2 mg Sl Film] Kratom 1 cap PO DIRECTED 09/21/20 09/21/20 History Allergies Allergy/AdvReac Type Severity Reaction Status Date / Time No Known Allergies Allergy Unverified 09/21/20 09:19 Physical Exam Vitals: Vital Signs Temp Pulse Resp BP Pulse Ox 09/21/20 10:06 71/24 09/21/20 10:01 102.6 F H 125 H 45 H 78/26 99 09/21/20 09:30 103.1 F H 129 H 45 H 104/34 99 09/21/20 09:02 104.7 F H 134 H 35 H 68/34 100 09/21/20 08:33 105.6 F H 144 H 38 H 74/33 99 09/21/20 08:07 106.2 F H 151 H 40 H 81/24 09/21/20 07:38 106.3 F H 149 H 36 H 85/21 10 L 09/21/20 07:14 106.9 F H 09/21/20 07:06 106.9 F H 165 H 18 50/20 100 09/21/20 06:45 104.2 F H 168 H 16 101/32 99 09/21/20 06:30 102.6 F H 168 H 28 H 65/28 100 09/21/20 06:25 103.1 F H 168 H 20 93/21 100 09/21/20 06:20 105.4 F H 165 H 16 98/33 100 09/21/20 06:15 105.6 F H 165 H 25 H 55/27 100 09/21/20 06:10 168 H 30 H 66/ 98 09/21/20 06:00 165 H 26 H 6428 98 09/21/20 05:40 162 H 20 91 L 09/21/20 05:31 28 H 09/21/20 05:29 105 F H 178 H 60 H 200/163 91 L 09/21/20 05:27 98.5 F 163 H 60 H 200/163 91 L Intake and Output 09/20/20 09/21/20 09/21/20 22:59 06:59 14:59 Intake Total 18.025 Balance 18.025 Intake: Intake, IV Titration 18.025 Amount Norepinephrine 4 mg In 18.025 Sodium Chloride 0.9% 250 ml @ 0.05 MCG/KG/MIN 18. 146 mls/hr IV .Q14H ONE Rx#:[id number] Other: Weight 95.254 kg GENERAL EXAM: Unresponsive, 34-year-old white male, intubated, on assist- control mode of ventilation with FiO2 of 50% and PEEP of 5, breathing over the ventilator, quite asynchronous with the vent, with coughing spells, but not purposeful and not following any command. Febrile and tachycardic, in sinus mechanism seen in the emergency preparation department supervisor: Normocephalic/atraumatic. EYES: Normal reaction of pupils, equal size. Conjunctiva pink, sclera white. NOSE: Clear with pink turbinates. THROAT: No erythema or exudates. NECK: No masses, no JVD, no thyroid enlargement, no adenopathy. CHEST: No chest wall deformity. Symmetrical expansion. LUNGS: Equal air entry with no crackles, wheeze, rhonchi or dullness. CVS: Regular rate and rhythm, normal S1 and S2, no gallops, no murmurs, no rubs ABDOMEN: Soft, nontender. No hepatosplenomegaly, normal bowel sounds, no guarding or rigidity. EXTREMITIES: No clubbing, no edema, no cyanosis, 2+ pulses and upper and lower extremities. MUSCULOSKELETAL: Muscle strength and tone normal. Patient has a tether on his right ankle SPINE: No scoliosis or deformity SKIN: No rashes CENTRAL NERVOUS SYSTEM: Sedated, intubated No focal deficits, tone is normal in all 4 extremities. Results - Laboratory Findings CBC and BMP: 09/21/20 06:35 09/21/20 05:46 ABG ABG pH 7.32 (7.35-7.45) L 09/21/20 07:07 ABG pCO2 35 mmHg (35-45) 09/21/20 07:07 ABG pO2 235 mmHg (83-108) H 09/21/20 07:07 ABG O2 Saturation 100.0 % (94-97) H 09/21/20 07:07 PT/INR, D-dimer PT 12.1 sec (9.0-12.0) H 09/21/20 06:35 INR 1.2 (<1.2) H 09/21/20 06:35 Abnormal lab findings: Abnormal Labs 09/21/20 09/21/20 09/21/20 05:39 05:46 06:35 WBC 16.0 H Neutrophils # (Manual) 12.10 H Monocytes # (Manual) 1.92 H Myelocytes # (Manual) 0.32 H Nucleated RBCs 2 H PT INR APTT ABG pH ABG pO2 ABG HCO3 ABG O2 Saturation VBG pH VBG HCO3 Potassium 5.3 H Chloride 108 H Carbon Dioxide 20 L BUN 28 H Creatinine 3.81 H Glucose 101 H POC Glucose (mg/dL) 147 H Plasma Lactic Acid Stewart AST 218 H ALT 156 H Ammonia Troponin I Urine Protein Urine Ketones Urine Mucus Urine Opiates Screen U Benzodiazepines Scrn U Marijuana (THC) Screen 09/21/20 09/21/20 09/21/20 06:35 06:35 06:40 WBC Neutrophils # (Manual) Monocytes # (Manual) Myelocytes # (Manual) Nucleated RBCs PT 12.1 H INR 1.2 H APTT 19.7 L ABG pH ABG pO2 ABG HCO3 ABG O2 Saturation VBG pH VBG HCO3 Potassium Chloride Carbon Dioxide BUN Creatinine Glucose POC Glucose (mg/dL) Plasma Lactic Acid Stewart AST ALT Ammonia Troponin I 1.460 H* Urine Protein 1+ H Urine Ketones Trace H Urine Mucus Many H Urine Opiates Screen Detected H U Benzodiazepines Scrn Detected H U Marijuana (THC) Screen Detected H 09/21/20 09/21/20 09/21/20 06:56 06:56 07:07 WBC Neutrophils # (Manual) Monocytes # (Manual) Myelocytes # (Manual) Nucleated RBCs PT INR APTT ABG pH 7.32 L ABG pO2 235 H ABG HCO3 18 L ABG O2 Saturation 100.0 H VBG pH 7.28 L VBG HCO3 19 L Potassium Chloride Carbon Dioxide BUN Creatinine Glucose POC Glucose (mg/dL) Plasma Lactic Acid Stewart AST ALT Ammonia 44 H Troponin I Urine Protein Urine Ketones Urine Mucus Urine Opiates Screen U Benzodiazepines Scrn U Marijuana (THC) Screen 09/21/20 09/21/20 09/21/20 08:15 10:32 10:34 WBC Neutrophils # (Manual) Monocytes # (Manual) Myelocytes # (Manual) Nucleated RBCs PT INR APTT ABG pH ABG pO2 ABG HCO3 ABG O2 Saturation VBG pH VBG HCO3 Potassium Chloride Carbon Dioxide BUN Creatinine Glucose POC Glucose (mg/dL) 52 L 61 L Plasma Lactic Acid Stewart 3.0 H* AST ALT Ammonia Troponin I Urine Protein Urine Ketones Urine Mucus Urine Opiates Screen U Benzodiazepines Scrn U Marijuana (THC) Screen - Diagnostic Findings Chest x-ray: report reviewed, image reviewed Additional studies: CT of the brain, EKG reviewed Assessment and Plan Plan: Assessment: #1. Acute hypoxic respiratory failure related to drug overdose, and possibility of sepsis. Drug screen was positive for opiates, benzodiazepines and marijuana #2. Fever, hypotension, rule out septic shock, possibly related to aspiration pneumonia #3. Hyperthermia, related to prolonged exposure to hot water #4. Metabolic acidosis, mild lactic acidosis rule out possibility of septic shock #5. Elevated troponin, rule out possibility of non-ST elevated CA #6. History of polysubstance abuse #7. Acute toxic metabolic encephalopathy #8. Acute kidney injury Plan: We'll start patient on Diprivan for sedation, and Nimbex infusion patient is quite asynchronous with the ventilator. Continue IV fluids, continue antibiotics, cultures have been sent, pending at this time. GI and DVT prophylaxis, labs have been noted, cardiology and neurology have been consulted. Patient is awaiting a bed in the intensive care unit, we will continue to closely follow. I performed a history & physical examination of the patient and discussed their management with my nurse practitioner, Dottie Cruz. I reviewed the nurse practitioner's note and agree with the documented findings and plan of care. Lung sounds are positive for diminished breath sounds. The findings and the impression was discussed with the patient. I attest to the documentation by the nurse practitioner. Time with Patient: Greater than 30
[2020-09-21] MEDS: IPRATROPIUM-ALBUTEROL 3 ML NEB INHALATION SCH ×5 (11:17→22:59)
[2020-09-21] MEDS: NOREPINEPHRINE 8 MG in SODIUM CHLORIDE 0.9% 250 ML IV SCH ×2 (12:05→13:34)
[2020-09-21 12:18] LABS: Glucose,Whole Blood 114 mg/dL (75-99)
[2020-09-21 13:13] LABS: Albumin 3.1 g/dL (3.5-5.0); Calcium 7.5 mg/dL (8.4-10.2); Magnesium 1.5 mg/dL (1.6-2.3); Potassium 4.1 mmol/L (3.5-5.1); Total Bilirubin 0.9 mg/dL (0.2-1.3)
[2020-09-21] MEDS ORDERED: SODIUM CHLORIDE 0.9% 150 ML with VASOPRESSIN 60 UNIT IV SCH ×2 (13:15)
[2020-09-21] MEDS ORDERED: HYDROCORTISONE SUCCINATE 100 MG/2 ML VIAL IV STA (13:26)
[2020-09-21 13:47] LABS: ABG Base Excess -15.4 mmol/L; ABG HCO3 16 mmol/L (21-25); ABG Oxygen Saturation 88.8 % (94-97); ABG PCO2 65 mmHg (35-45); ABG PO2 81 mmHg (83-108); ABG TCO2 18 mmol/L (19-24)
[2020-09-21] MEDS ORDERED: SODIUM BICARB 8.4% 50 ML SYR (1 MEQ/ML) IV STA (13:52)
[2020-09-21 13:56] LABS: HCT 50.7 % (39.0-53.0); HGB 16.1 gm/dL (13.0-17.5); Hypochromasia Slight; MCH 31.2 pg (25.0-35.0); MCHC 31.8 g/dL (31.0-37.0); MCV 97.9 fL (80.0-100.0); Mean Platelet Volume 8.2; Platelet Count 182 k/uL (150-450); RBC 5.17 m/uL (4.30-5.90); RDW 14.3 % (11.5-15.5)
[2020-09-21] MEDS ORDERED: DEXTROSE 5% IN WATER 1,000 ML with SODIUM BICARB (1 MEQ/ML) 150 ML IV ONE (14:00)
[2020-09-21 14:18] LABS: Band Neutrophils % 7 %; Metamyelocytes % 3 %; Myelocytes % 1 %; Neutrophils % (M) 74 %; Nucleated Red Blood Cells 13 /100 WBC (0-0); Total Cells Counted 200
[2020-09-21 14:19] LABS: Lymphocytes # (M) 2.55 k/uL (1.0-4.8); Metamyelocytes # (M) 0.59 k/uL (0); Monocytes # (M) 0.59 k/uL (0-1.0); WBC 19.6 k/uL (3.8-10.6)
[2020-09-21] MEDS: NOREPINEPHRINE 32 MG in SODIUM CHLORIDE 0.9% 218 ML IV SCH ×3 (14:35→21:09)
[2020-09-21] MEDS: PANTOPRAZOLE 40 MG/10 ML VIAL IVP SCH ×2 (14:36→20:39)
[2020-09-21 15:35] LABS: Potassium 4.5 mmol/L (3.5-5.1)
[2020-09-21 15:36] LABS: Calcium 8.8 mg/dL (8.4-10.2); Magnesium 1.4 mg/dL (1.6-2.3)
[2020-09-21 16:17] VITALS: RESP 24
--- NOTE | 2020-09-21 16:20 | CONS ---
CONSULTATION Mr. Fernandez is a 34-year-old male who presented to the emergency room, found unresponsive. According to the notes and the nursing staff, patient has a known history of polysubstance abuse. He was in the hotel with his girlfriend who was with him use using drug in the bathtub. Subsequently she went to sleep, woke up and found him in the bathtub barely breathing. He came into the emergency room. He was noted to be hypotensive, unresponsive. He was intubated. He was febrile on presentation with temperature up to 105.6. He had sinus tachycardia. He is intubated at this time, unresponsive. He has blood coming out of the NG tube. There is no urinary output. No other history could be obtained. No review of system. PHYSICAL EXAMINATION: A 34-year-old male, intubated, unresponsive. Blood pressure running in the 90s to 100 with a heart rate in the one teens. HEAD: Normocephalic. EYES: Pupils fixed and nonreactive. NECK: No bruit. LUNGS: Clear to auscultation anteriorly. HEART: Tachycardic. S1, S2. No S3. No rub appreciated. ABDOMEN: Soft. No organomegaly. Hypoactive bowel sounds. EXTREMITIES: No edema. LAB DATA: Lab data revealed a white blood cell of 16, hemoglobin of 15.8. His pH 7.32, pCO2 of 35, pO2 of 235. BUN and creatinine on presentation 28 and 3.81. His initial troponin of 1.4, subsequently 24.8. No old labs are available. His chest x-ray shows possible atelectasis. His EKG reveals sinus tachycardia with nonspecific ST-T wave changes with right axis deviation. IMPRESSION: 1. Unresponsiveness is related to drug overdose with respiratory failure. 2. Fever with possible sepsis and aspiration pneumonia. 3. Elevated troponin, most likely related to demand supply mismatch related to his sepsis. 4. Hyperthermia. 5. Renal failure of unknown duration. 6. Probable toxic encephalopathy and possible anoxic encephalopathy. RECOMMENDATION: I will obtain echocardiogram with Doppler. At this time, no further cardiac care and intervention is indicated. Unfortunately, the prognosis is very poor. Thank you for this consult. We will follow with you. MMODL / IJN: [id number] /
[2020-09-21] MEDS ORDERED: MAGNESIUM SULFATE-D5W PMX 1 GM in DEXTROSE/WATER 1 100ML.BAG IVPB ONE (17:00)
[2020-09-21] MEDS: HYDROCORTISONE SUCCINATE 100 MG/2 ML VIAL IV SCH (17:38)
--- NOTE | 2020-09-21 17:51 | P.CNNES ---
History of Present Illness Consult date: 09/21/20 Requesting physician: Mark Castro Reason for Consult: Hypoxic brain injury History of Present Illness: Patient is a 34-year-old male came to the hospital by ambulance today at 5:26 AM from a motel room where he was staying with his partner. They had reportedly been using hot tub last night and the patient probably was using methamphetamine and possibly opioids. The partner had gone to sleep and woke to find the p atient unresponsive in the hot tub. He had probably been in the tub for 6 hours. As per EMS flow sheet when they arrived on the scene, found patient in the bathtub. Patient's significant other was on the scene in herself or doing whippets last night. Patient is also on Suboxone. Patient's friend mentioned that patient has taken Kratom capsules, unknown amount. Patient and her were in the bathtub/Jacuzzi at approximately 8 PM last night when seen awake by the friend. Patient last seen awake by her friend was about midnight. At around 5 AM when she went in, patient was having snoring respiration and then she called 911. It was reported patient used heroine when abusing substances. Water in the bathtub was warm/hot. Patient's blood pressure at the scene was 161/140, pulse rate 180, respiration 40, saturation 85% and blood sugar was 210. Vital signs arrival blood pressure 200/163, pulse rate 163 temperature 98.5 CBC with WBC 16.0 hemoglobin 15.8 platelets 287 INR 1.2, PTT 19.7 pH was 7.32, pCO2 35. Sodium 143 potassium 5.3, BUN 28 creatinine 3.81. AST 218, ALT 156. Troponin 1.46 UA negative. Urine drug screen positive for opiates, benzodiazepine and marijuana. Patient's troponin has gone up to 28.4. Blood alcohol level negative. Gil virus PCR negative. Patient's WBC has gone up to 22.1, BUN 37, creatinine 4.66. His liver panel also with AST 1321, ALT 632. CT head showed no acute intracranial hemorrhage or midline shift. Paranasal sinus disease. EKG shows sinus tachycardia, right axis deviation. Pulmonary disease pattern. Chest x-ray showed low lung volumes with mild central vascular congestion and right basilar infiltrate and/or atelectasis. Patient is extremely unstable at this time. He he is on very high-dose of Levophed 1.3, propofol of 10 g. Also on vasopressors. Patient also placed on paralyzing agent because of hemodynamic instability. Before paralyzing agent was initiated, patient was having a very weak gag, no pupillary response. Review of Systems ROS unobtainable: due to endotracheal tube, due to mental status Past Medical History Past Medical History: No Reported History History of Any Multi-Drug Resistant Organisms: None Reported Past Surgical History: No Surgical Hx Reported Smoking Status: Unknown if ever smoked Past Alcohol Use History: None Reported Past Drug Use History: None Reported - Past Family History Father Family Medical History: GERD/Reflux Medications and Allergies Home Medications Medication Instructions Recorded Confirmed Type Buprenorphine HCl/Naloxone HCl 1 film SL BID 09/21/20 09/21/20 History [Suboxone 8 mg-2 mg Sl Film] Kratom 1 cap PO DIRECTED 09/21/20 09/21/20 History Allergies Allergy/AdvReac Type Severity Reaction Status Date / Time No Known Allergies Allergy Unverified 09/21/20 09:19 Physical Examination - Vital Signs Vital Signs: Vital Signs Temp Pulse Resp BP Pulse Ox 09/21/20 12:15 120 H 16 79/50 92 L 09/21/20 12:00 100.2 F H 122 H 16 79/55 93 L 09/21/20 11:45 117 H 16 74/51 94 L 09/21/20 11:30 115 H 16 83/49 96 09/21/20 11:15 117 H 16 85/48 97 09/21/20 11:00 112 H 16 89/60 97 09/21/20 10:45 101.1 F H 118 H 42 H 119/56 96 09/21/20 10:30 118 H 41 H 105/95 97 09/21/20 10:24 121 H 43 H 09/21/20 10:06 71/24 09/21/20 10:01 102.6 F H 125 H 45 H 78/26 99 09/21/20 09:30 103.1 F H 129 H 45 H 104/34 99 09/21/20 09:02 104.7 F H 134 H 35 H 68/34 100 09/21/20 08:33 105.6 F H 144 H 38 H 74/33 99 09/21/20 08:07 106.2 F H 151 H 40 H 81/24 02/23/21 07:38 106.3 F H 149 H 36 H 85/21 10 L 09/21/20 07:14 106.9 F H 09/21/20 07:06 106.9 F H 165 H 18 50/20 100 09/21/20 06:45 104.2 F H 168 H 16 101/32 99 09/21/20 06:30 102.6 F H 168 H 28 H 65 100 09/21/20 06:25 103.1 F H 168 H 20 93/21 100 09/21/20 06:20 105.4 F H 165 H 16 98/33 100 09/21/20 06:15 105.6 F H 165 H 25 H 55 100 09/21/20 06:10 168 H 30 H 98 09/21/20 06:00 165 H 26 H 64 98 09/21/20 05:40 162 H 20 91 L 09/21/20 05:31 28 H 09/21/20 05:29 105 F H 178 H 60 H 200/163 91 L 09/21/20 05:27 98.5 F 163 H 60 H 200/163 91 L Intake and Output 09/20/20 09/21/20 09/21/20 22:59 06:59 14:59 Intake Total 803.145 Output Total 450 Balance 353.145 Intake: IV 500 Sodium Chloride 0.9% 1, 500 000 ml @ 250 mls/hr IV . Q4H [facility] Rx#:[id number] Intake, IV Titration 303.145 Amount Norepinephrine 4 mg In 64.298 Sodium Chloride 0.9% 250 ml @ 0.05 MCG/KG/MIN 18. 146 mls/hr IV .Q14H [facility] Rx#:[id number] Norepinephrine 8 mg In 224.559 Sodium Chloride 0.9% 250 ml @ 0.05 MCG/KG/MIN 9. 216 mls/hr IV .Q24H [facility] Rx#:[id number] propofoL 500 mg In Empty 14.288 Bag 1 bag @ Titrate IV . Q0M [facility] Rx#:[id number] Output: Gastric Drainage 450 Urine 0 Other: Voiding Method Indwelling Catheter Weight 95.254 kg On examination patient is a young male, who is comatose, intubated, also on sedation including paralyzing agent. Patient is in a mechanical ventilator, and his respiration is in synchronous with the respiration. At present there is no Gag or cough. Pupillary responses are absent. Oculocephalics absent. Corneals absent. Reflexes are absent, plantars are flat. Patient has wrinkling of the feet because of being in water for so long. Rest of the examination cannot be performed. No seizure-like activity is noted. There is no obvious bruit, S1 and S2 audible. Peripheral pulses are present. Patient has some cyanosis of the toes of the feet. Probably from levophed. Results - Laboratory Findings CBC and BMP: 09/21/20 13:40 09/21/20 12:32 Abnormal Lab Findings: Abnormal Labs 09/21/20 09/21/20 09/21/20 05:39 05:46 06:35 WBC 16.0 H Neutrophils # (Manual) 12.10 H Monocytes # (Manual) 1.92 H Myelocytes # (Manual) 0.32 H Nucleated RBCs 2 H PT INR APTT ABG pH ABG pCO2 ABG pO2 ABG HCO3 ABG Total CO2 ABG O2 Saturation VBG pH VBG HCO3 Sodium Potassium 5.3 H Chloride 108 H Carbon Dioxide 20 L BUN 28 H Creatinine 3.81 H Glucose 101 H POC Glucose (mg/dL) 147 H Plasma Lactic Acid Stewart Calcium Magnesium AST 218 H ALT 156 H Ammonia Troponin I Total Protein Albumin Urine Protein Urine Ketones Urine Mucus Urine Opiates Screen U Benzodiazepines Scrn U Marijuana (THC) Screen 09/21/20 09/21/20 09/21/20 06:35 06:35 06:40 WBC Neutrophils # (Manual) Monocytes # (Manual) Myelocytes # (Manual) Nucleated RBCs PT 12.1 H INR 1.2 H APTT 19.7 L ABG pH ABG pCO2 ABG pO2 ABG HCO3 ABG Total CO2 ABG O2 Saturation VBG pH VBG HCO3 Sodium Potassium Chloride Carbon Dioxide BUN Creatinine Glucose POC Glucose (mg/dL) Plasma Lactic Acid Stewart Calcium Magnesium AST ALT Ammonia Troponin I 1.460 H* Total Protein Albumin Urine Protein 1+ H Urine Ketones Trace H Urine Mucus Many H Urine Opiates Screen Detected H U Benzodiazepines Scrn Detected H U Marijuana (THC) Screen Detected H 09/21/20 09/21/20 09/21/20 06:56 06:56 07:07 WBC Neutrophils # (Manual) Monocytes # (Manual) Myelocytes # (Manual) Nucleated RBCs PT INR APTT ABG pH 7.32 L ABG pCO2 ABG pO2 235 H ABG HCO3 18 L ABG Total CO2 ABG O2 Saturation 100.0 H VBG pH 7.28 L VBG HCO3 19 L Sodium Potassium Chloride Carbon Dioxide BUN Creatinine Glucose POC Glucose (mg/dL) Plasma Lactic Acid Stewart Calcium Magnesium AST ALT Ammonia 44 H Troponin I Total Protein Albumin Urine Protein Urine Ketones Urine Mucus Urine Opiates Screen U Benzodiazepines Scrn U Marijuana (THC) Screen 09/21/20 09/21/20 09/21/20 08:15 09:44 10:32 WBC Neutrophils # (Manual) Monocytes # (Manual) Myelocytes # (Manual) Nucleated RBCs PT INR APTT ABG pH ABG pCO2 ABG pO2 ABG HCO3 ABG Total CO2 ABG O2 Saturation VBG pH VBG HCO3 Sodium Potassium Chloride Carbon Dioxide BUN Creatinine Glucose POC Glucose (mg/dL) 52 L Plasma Lactic Acid Stewart 3.0 H* Calcium Magnesium AST ALT Ammonia Troponin I 28.400 H* Total Protein Albumin Urine Protein Urine Ketones Urine Mucus Urine Opiates Screen U Benzodiazepines Scrn U Marijuana (THC) Screen 09/21/20 09/21/20 09/21/20 10:34 10:50 12:17 WBC Neutrophils # (Manual) Monocytes # (Manual) Myelocytes # (Manual) Nucleated RBCs PT INR APTT ABG pH ABG pCO2 ABG pO2 ABG HCO3 ABG Total CO2 ABG O2 Saturation VBG pH VBG HCO3 Sodium Potassium Chloride Carbon Dioxide BUN Creatinine Glucose POC Glucose (mg/dL) 61 L 138 H 114 H Plasma Lactic Acid Stewart Calcium Magnesium AST ALT Ammonia Troponin I Total Protein Albumin Urine Protein Urine Ketones Urine Mucus Urine Opiates Screen U Benzodiazepines Scrn U Marijuana (THC) Screen 09/21/20 09/21/20 09/21/20 12:32 13:40 13:45 WBC 22.1 H Neutrophils # (Manual) Monocytes # (Manual) Myelocytes # (Manual) Nucleated RBCs PT INR APTT ABG pH 7.00 L* ABG pCO2 65 H ABG pO2 81 L ABG HCO3 16 L ABG Total CO2 18 L ABG O2 Saturation 88.8 L VBG pH VBG HCO3 Sodium 146 H Potassium Chloride 117 H Carbon Dioxide 19 L BUN 37 H Creatinine 4.66 H Glucose 112 H POC Glucose (mg/dL) Plasma Lactic Acid Stewart Calcium 7.5 L Magnesium 1.5 L AST 1321 H ALT 632 H Ammonia Troponin I Total Protein 6.0 L Albumin 3.1 L Urine Protein Urine Ketones Urine Mucus Urine Opiates Screen U Benzodiazepines Scrn U Marijuana (THC) Screen Assessment and Plan Assessment: * Probable Hypoxic/toxic metabolic encephalopathy, probably severe in degree. * Multiorgan failure including elevated liver enzymes, renal functions, cardiac enzymes. Possible sepsis. * History of polysubstance (heroin) abuse. Urine positive for opiates, benzodiazepines and marijuana. Patient was on Suboxone. Plan: * EEG was performed today. It revealed severely suppressed background activity, with mild burst suppressed pattern, suggestive of severe hypoxic/toxic metabolic encephalopathy. No epileptiform activity was seen. * Overall prognosis appears poor based upon clinical examination, EEG findings, and other multiorgan dysfunction. * Neurology will follow.
--- NOTE | 2020-09-21 20:58 | PCN ---
PROCEDURE NOTE PROCEDURE: Placement of right femoral artery line. OPERATORS: 1. Dr. Jabari Ortiz. 2. Dr. Elisa Cruz. INDICATIONS: Hemodynamic monitoring. PROCEDURE DESCRIPTION: A time-out was completed verifying correct patient, procedure, site, positioning, and implant(s) or special equipment if applicable. Nelson's test was performed to ensure adequate perfusion. The patient's right groin was prepped and draped in sterile fashion. 1% Lidocaine was used to anesthetize the area. An 18G Arrow arterial line was introduced into the femoral artery. The catheter was threaded over the guidewire and the needle was removed with appropriate pulsatile blood return. Blood loss was minimal. The catheter was then sutured in place to the skin and a sterile dressing was applied by the nurse. Perfusion to the extremity distal to the point of catheter insertion was checked and found to be adequate. There was good blood return and waveform. There was good correlation between the arterial line pressure and the pressure was obtained by cuff measurement. The patient tolerated the procedure well and there were no immediate complications. MMODL / IJN: [id number] /
[2020-09-21] MEDS ORDERED: CHLORHEXIDINE GLUCONATE 15 ML CUP MUCOUS MEM SCH (21:00)
[2020-09-21] MEDS ORDERED: HEPARIN SODIUM,PORCINE 5,000 UNIT/ML 1 ML VIAL SQ SCH (21:00)
[2020-09-22] MEDS: PIPERACILLIN-TAZOBACTAM 3.375 GM in SODIUM CHLORIDE 0.9% 100 ML IVPB SCH (00:46)
[2020-09-22] MEDS: HYDROCORTISONE SUCCINATE 100 MG/2 ML VIAL IV SCH ×2 (00:47→06:27)
[2020-09-22] MEDS: IPRATROPIUM-ALBUTEROL 3 ML NEB INHALATION SCH (03:06)
[2020-09-22] MEDS: SODIUM CHLORIDE 0.9% 1,000 ML IV SCH (03:42)
[2020-09-22 04:55] VITALS: BP 91/52; PULSE 92; TEMP 96.1
[2020-09-22] MEDS ORDERED: FAMOTIDINE 20 MG/2 ML VIAL IV SCH (09:00)
--- NOTE | 2020-09-22 10:04 | ECHOF ---
Referral Reason:Troponin elevation MEASUREMENTS -------- HEIGHT: 177.8 cm WEIGHT: 95.3 kg BP: 104/34 RVIDd: 3.4 cm (< 3.3) IVSd: 1.5 cm (0.6 - 1.1) LVIDd: 4.2 cm (3.9 - 5.3) LVPWd: 1.4 cm (0.6 - 1.1) IVSs: 1.8 cm LVIDs: 3.1 cm LVPWs: 1.6 cm LA Diam: 3.1 cm (2.7 - 3.8) Ao Diam: 3.3 cm (2.0 - 3.7) AV Cusp: 2.3 cm (1.5 - 2.6) MV EXCURSION: 18.221 mm (> 18.000) MV EF SLOPE: 75 mm/s (70 - 150) EPSS: 0.6 cm MV E Jan: 0.41 m/s MV DecT: 134 ms MV A Jan: 0.53 m/s MV E/A Ratio: 0.79 FINDINGS -------- Resting tachycardia (HR>100bpm). This was a technically difficult study with suboptimal views. The left ventricular size is normal. There is moderate concentric left ventricular hypertrophy. O verall left ventricular systolic function is mild-moderately impaired with, an EF between 40 - 45 %. The right ventricle is mildly enlarged. The left atrium is normal in size. The right atrium is normal in size. 3 ml of Lumason was utilized for enhancement of images. Interatrial and interventricular septum intact. The aortic valve is trileaflet and appears structurally normal. The mitral valve is normal. The tricuspid valve appears structurally normal. The pulmonic valve was not well visualized. The aortic root size is normal. There is no pericardial effusion. CONCLUSIONS -------- 1. The left ventricular size is normal. 2. There is moderate concentric left ventricular hypertrophy. 3. Overall left ventricular systolic function is mild-moderately impaired with, an EF between 40 - 45 %. 4. The right ventricle is mildly enlarged. 5. 3 ml of Lumason was utilized for enhancement of images. 6. There is no pericardial effusion. ORDNANCE OFFICER: Nely Sellers RD
--- NOTE | 2020-09-22 11:56 | P.DS ---
Providers Date of admission: 09/21/20 08:51 Expected date of discharge: 09/22/20 Attending physician: Bettye Monroe Consults: 09/21/20 08:51 Consult Physician Stat Consulting Provider: Jabari Ortiz Consult Reason/Comments: Critical care. Do you want consulting provider notified?: Already Contacted 09/21/20 09:13 Consult Physician Routine Consulting Provider: Jimmy Ortiz Consult Reason/Comments: Hypoxic brain injury Do you want consulting provider notified?: Yes 09/21/20 09:14 Consult Physician Routine Consulting Provider: Solomon Ramirez Consult Reason/Comments: Troponin elevation Do you want consulting provider notified?: Yes Primary care physician: Stated None Hospital Course: Patient overnight on 09/21/2020. Please refer to nursing staff and noc turnist documentation for exact time of and the event that led to his as I was not notified of anything. Below is a summary of his hospital stay This is a 34-year-old male who was brought into the emergency room after his girlfriend found him unresponsive in a bathtub in a hotel. Apparently patient was last seen normal 6-8 hours prior to his presentation. He will be admitted to the intensive care unit for further management of his medical problems noted below. 1. Opiate and benzodiazepine overdose 2. Acute hypoxic respiratory failure requiring mechanical intubation. 3. Acute toxic metabolic encephalopathy 4. Suspected anoxic brain injury 5. Severe sepsis with septic shock 6. Suspected aspiration pneumonia 7. Acute kidney failure, oliguric 8. Troponin elevation Plan - Discharge Summary Discharge Rx Participant: No New Discharge Prescriptions: No Action Buprenorphine HCl/Naloxone HCl [Suboxone 8 mg-2 mg Sl Film] 1 film SL BID Kratom 1 cap PO DIRECTED Discharge Medication List Buprenorphine HCl/Naloxone HCl [Suboxone 8 mg-2 mg Sl Film] 1 film SL BID 09/21/20 [History] Kratom 1 cap PO DIRECTED 09/21/20 [History] Follow up Appointment(s)/Referral(s): None,Stated [Primary Care Provider] - 1-2 days Discharge Disposition: - Preliminary Cause of Preliminary Cause of : Anoxic brain injury
--- NOTE | 2020-09-22 11:59 | EEG ---
ELECTROENCEPHALOGRAM REPORT DATE OF SERVICE: 09/21/2020 PREAMBLE: This is a 34-year-old male who is unresponsive, suspected overdose. Patient is comatose. EEG FINDINGS: This is a 21 channel routine EEG recording in a patient utilizing 10/20 international system with referential and bipolar montages. The background consists of almost absent, severely attenuated low amplitude activity in bihemispheric region, with intermittent bursts of moderate amplitude 2-3 hertz delta activity lasting for 1 second. The background does not seem to be reactive to eye opening or closing. Photic driving response was not seen. No focal or generalized epileptiform activity was seen. IMPRESSION: This is a severely abnormal EEG due to presence of severely attenuated suppressed background activity with intermittent bursts of moderate amplitude delta activity. This burst suppressed pattern is suggestive of severe encephalopathy, nonspecific etiology could be related to hypoxic ischemic or severe metabolic causes. This EEG pattern usually pertains poor prognosis. No epileptiform activity was seen. MMROSIO / IFEANYIN: [id number] / BRENDA
--- NOTE | 2020-09-24 13:05 | CDI ---
Documentation Clarification Form Mortality Review Date: 09/24/2020 01:02:28 PM From: Anuja Marcum RN, CCDS Admit Date: 09/21/2020 08:51:00 AM Patient Name: Femi Fernandez Visit Number: [id number] Discharge Date: 09/22/2020 06:47:00 AM ATTENTION: The Clinical Documentation Specialists (CDI) and [facility] Coding Staff appreciate your assistance in clarifying documentation. Please respond to the clarification below the line at the bottom and electronically sign. The CDI & [facility] Coding staff will review the response and follow-up if needed. Please note: Queries are made part of the Legal Health Record. If you have any questions, please contact the author of this message via ITS. Dr. Bettye Monroe "Elevated troponin, most likely related to demand supply mismatch related to his sepsis," has been documented and requires further specificity to accurately reflect patient SOI/ROM. Patient History/Risk Factors: Polysubstance abuse with drug overdose, Sepsis with Septic Shock second to aspiration pneumonia, hyperthermia r/t prolonged exposure to hot water, KARIN Clinical Indicators: 09/21 Cardiology Consult: "Elevated troponin, most likely related to demand supply mismatch related to his sepsis." 09/21 Troponin: 1.46/28.4 EKG Results :( per 09/21 Cardiology Consult):"His EKG reveals sinus tachycardia with nonspecific ST-T wave changes with right axis deviation." Treatment: 09/21 Cardiology consult: "At this time, no further cardiac care and Intervention is indicated. Unfortunately, the prognosis is very poor." 09/21 4L 0.9% NS IVF Bolus followed by 130 cc/hr. 09/21 Ativan 4 mg IVP and 4 mg MS IVP IV Levophed Gtt titrate for B/P IV Vasopressin Gtt .04 units/min For accurate documentation please indicate the clinical significance of the troponin elevation secondary to supply and demand mismatch: Type II ID secondary to Sepsis with Septic Shock Unable to determine Other Condition, please specify + Troponin elevation secondary to type II ID secondary to septic shock MTDD
== END 2020-09-22 06:47 | disposition expired | DRG 917 ==
LOC: EC 05:26 → 2SICU 08:51
PROVIDERS: ADMIT Internal Medicine; ATTEND Internal Medicine
PROC: 0BH17EZ Insertion of Endotracheal Airway into Trachea, Via Natural or Artificial Opening (ICD-10-PCS; principal; 2020-09-21)
PROC: 5A1935Z Respiratory Ventilation, Less than 24 Consecutive Hours (ICD-10-PCS; principal; 2020-09-21)
PROC: 02HV33Z Insertion of Infusion Device into Superior Vena Cava, Percutaneous Approach (ICD-10-PCS; 2020-09-21)
PROC: 4A133J1 Monitoring of Arterial Pulse, Peripheral, Percutaneous Approach (ICD-10-PCS; 2020-09-21)
PROC: 4A133B1 Monitoring of Arterial Pressure, Peripheral, Percutaneous Approach (ICD-10-PCS; 2020-09-21)
PROC: 04HY32Z Insertion of Monitoring Device into Lower Artery, Percutaneous Approach (ICD-10-PCS; 2020-09-21)
PROC: 3E033XZ Introduction of Vasopressor into Peripheral Vein, Percutaneous Approach (ICD-10-PCS; 2020-09-21)
DX: T42.4X1A Poisoning by benzodiazepines, accidental (unintentional), initial encounter (principal); J96.01 Acute respiratory failure with hypoxia; G92 Toxic encephalopathy; R65.21 Severe sepsis with septic shock; A41.9 Sepsis, unspecified organism; J69.0 Pneumonitis due to inhalation of food and vomit; I21.A1 Myocardial infarction type 2; N17.9 Acute kidney failure, unspecified; G93.1 Anoxic brain damage, not elsewhere classified; E87.2 Acidosis; Z20.822 Contact with and (suspected) exposure to COVID-19; T40.601A Poisoning by unspecified narcotics, accidental (unintentional), initial encounter; Z66 Do not resuscitate
CPT/HCPCS: 36415; 36556; 36600; 51702; 70450; 71045; 80048; 80053; 80306; 80320; 81001; 82140; 82803; 82805; 83605; 83735; 84484; 85025; 85610; 85730; 87040; 87070; 87077; 87186; 87205; 87635; 93005; 93306; 94002; 94003; 94640; 95816; 96361; 96365; 96366; 96368; 96374; 96375; 96376; 99285